=== PATIENT | female | born 1990 | race African-American/Black ===

== ENCOUNTER 2019-02-02 12:39 | Emergency (ER) | payer OTHER ==
[~2019-02-02] VITALS: Ht 157.5 cm; Wt 68.0 kg
[~2019-02-02 12:39] MED LIST: NAPR-683 PO; PNV1CAPS PO
[2019-02-02] MEDS ORDERED: ONDANSETRON PF 4 MG/2 ML VIAL. IV ONE (13:45)
[2019-02-02] MEDS ORDERED: IV NORMAL SALINE 1000ML BAG 1,000 ML IV ONE (13:45)
--- NOTE | 2019-02-02 13:46 | PHYS DOC ---
Past Medical History Past Medical History: Depression Past Surgical History: No Surgical History Alcohol Use: None Drug Use: None Adult General Chief Complaint Chief Complaint: NAUSEA/VOMITING/DIARRHA HPI HPI Patient is a 28 year old [female] who presents with [nausea, vomiting, diarrhea, and RLQ abdominal pain. Patient states she had eaten a bad hamburger at [facility] yesterday, had started to feel nauseous, has had 5 episodes of vomiting, 3 episodes of diarrhea, and loss of appetite today. Denies fever. States LMP 3 days, ago, this discomfort does not feel like her menstrual discomfort. States last bowel movement approximately 2 hours ago. ] Review of Systems Review of Systems Constitutional: Denies fever does report some chills [] Eyes: Denies change in visual acuity, redness, or eye pain [] HENT: Denies nasal congestion or sore throat [] Respiratory: Denies cough or shortness of breath [] Cardiovascular: No additional information not addressed in HPI [] GI: Reports abdominal pain, nausea, vomiting, diarrhea. Denies change in stools, denies bloody stools [] : Denies dysuria or hematuria [] Musculoskeletal: Denies back pain or joint pain [] Integument: Denies rash or skin lesions [] Neurologic: Denies headache, focal weakness or sensory changes [] Endocrine: Denies polyuria or polydipsia [] All other systems were reviewed and found to be within normal limits, except as documented in this note. Current Medications Current Medications Current Medications Medications (Trade) Dose Ordered Sig/Elieser Start Time Stop Time Status Last Admin Dose Admin Info (CONTRAST GIVEN -- Rx MONITORING) 1 each PRN DAILY PRN 02/02/19 14:45 02/04/19 14:44 Iohexol (Omnipaque 300 Mg/ml) 75 ml 1X ONCE 02/02/19 14:30 02/02/19 14:31 DC Ondansetron HCl (Zofran) 4 mg 1X ONCE 02/02/19 13:45 02/02/19 13:47 DC 02/02/19 13:58 4 MG Sodium Chloride 1,000 ml @ 1,000 mls/hr 1X ONCE 02/02/19 13:45 02/02/19 14:44 DC 02/02/19 13:58 1,000 MLS/HR Allergies Allergies Allergies Coded Allergies Type Severity Reaction Last Updated Verified No Known Drug Allergies 02/02/19 No Physical Exam Physical Exam Constitutional: Well developed, well nourished, no acute distress, non-toxic appearance. [] HENT: Normocephalic, atraumatic, bilateral external ears normal, oropharynx moist, no oral exudates, nose normal. [] Eyes: PERRLA, EOMI, conjunctiva normal, no discharge. [] Neck: Normal range of motion, no tenderness, supple, no stridor. [] Cardiovascular:Heart rate regular rhythm, no murmur [] Lungs & Thorax: Bilateral breath sounds clear to auscultation [] Abdomen: Bowel sounds normal, soft, tenderness to RLQ, no masses, no pulsatile masses. Negative Psoas. Negative Rovsigs, Negative Warwick sign[] Skin: Warm, dry, no erythema, no rash. [] Back: No tenderness, no CVA tenderness. [] Extremities: No tenderness, no cyanosis, no clubbing, ROM intact, no edema. [] Neurologic: Alert and oriented X 3, normal motor function, normal sensory function, no focal deficits noted. [] Psychologic: Affect normal, judgement normal, mood normal. [] Current Patient Data Vital Signs Vital Signs Date Time Temp Pulse Resp B/P (MAP) Pulse Ox O2 Delivery O2 Flow Rate FiO2 02/02/19 13:08 98.3 75 16 111/75 (87) 99 98.3 Lab Values Laboratory Tests Test 02/02/19 13:00 02/02/19 13:06 02/02/19 13:50 Urine Collection Type Unknown Urine Color Yellow Urine Clarity Clear Urine pH 7.0 Urine Specific [place] 1.020 Urine Protein Negative mg/dL (NEG-TRACE) Urine Glucose (UA) Negative mg/dL (NEG) Urine Ketones (Stick) Negative mg/dL (NEG) Urine Blood Negative (NEG) Urine Nitrite Negative (NEG) Urine Bilirubin Negative (NEG) Urine Urobilinogen Dipstick 1.0 mg/dL (0.2 mg/dL) Urine Leukocyte Esterase Small (NEG) Urine RBC 1-2 /HPF (0-2) Urine WBC 1-4 /HPF (0-4) Urine Squamous Epithelial Cells Mod /LPF Urine Bacteria Moderate /HPF (0-FEW) Urine Mucus Mod /LPF POC Urine HCG, Qualitative Hcg negative (Negative) White Blood Count 4.8 x10^3/uL (4.0-11.0) Red Blood Count 4.32 x10^6/uL (3.50-5.40) Hemoglobin 12.2 g/dL (12.0-15.5) Hematocrit 37.1 % (36.0-47.0) Mean Corpuscular Volume 86 fL (79-100) Mean Corpuscular Hemoglobin 28 pg (25-35) Mean Corpuscular Hemoglobin Concent 33 g/dL (31-37) Red Cell Distribution Width 14.6 % (11.5-14.5) H Platelet Count 249 x10^3/uL (140-400) Neutrophils (%) (Auto) 44 % (31-73) Lymphocytes (%) (Auto) 46 % (24-48) Monocytes (%) (Auto) 8 % (0-9) Eosinophils (%) (Auto) 2 % (0-3) Basophils (%) (Auto) 1 % (0-3) Neutrophils # (Auto) 2.1 x10^3/uL (1.8-7.7) Lymphocytes # (Auto) 2.2 x10^3/uL (1.0-4.8) Monocytes # (Auto) 0.4 x10^3/uL (0.0-1.1) Eosinophils # (Auto) 0.1 x10^3/uL (0.0-0.7) Basophils # (Auto) 0.0 x10^3/uL (0.0-0.2) Sodium Level 140 mmol/L (136-145) Potassium Level 4.7 mmol/L (3.5-5.1) Chloride Level 104 mmol/L (98-107) Carbon Dioxide Level 28 mmol/L (21-32) Anion Gap 8 (6-14) Blood Urea Nitrogen 12 mg/dL (7-20) Creatinine 0.9 mg/dL (0.6-1.0) Estimated GFR (Cockcroft-Gault) 91.6 BUN/Creatinine Ratio 13 (6-20) Glucose Level 92 mg/dL (70-99) Calcium Level 9.3 mg/dL (8.5-10.1) Total Bilirubin 0.4 mg/dL (0.2-1.0) Aspartate Amino Transferase (AST) 34 U/L (15-37) Alanine Aminotransferase (ALT) 34 U/L (14-59) Alkaline Phosphatase 97 U/L (46-116) Total Protein 7.9 g/dL (6.4-8.2) Albumin 3.6 g/dL (3.4-5.0) Albumin/Globulin Ratio 0.8 (1.0-1.7) L Laboratory Tests 02/02/19 13:50 Laboratory Tests 02/02/19 13:50 EKG EKG [] Radiology/Procedures Radiology/Procedures FINDINGS: Lung bases are clear. Liver unremarkable. Spleen unremarkable. Pancreas is difficult to delineate from adjacent unopacified bowel loops but no definite abnormality. No evidence of adrenal mass. Kidneys demonstrate symmetric enhancement without hydronephrosis or dominant mass. No calcified gallstone. Aorta is nonaneurysmal. No significant lymph node enlargement is seen. No significant small bowel distention. No evidence of acute colitis. The appendix is not clearly visualized, which could be due to the noncontrast technique and the paucity of fat in the right lower quadrant. No definite inflammatory type changes or fluid is identified in the expected location of the appendix. Urinary bladder appears unremarkable. No evidence of pelvic mass. Vertebral body height and alignment are intact. IMPRESSION: The appendix is not visualized. This could be due to the lack of oral contrast and paucity of fat. No definite inflammatory type changes or fluid are identified. Electronically signed by: Lucius Corado MD (02/02/2019 2:58 PM) [facility] [] Course & Med Decision Making Course & Med Decision Making Pertinent Labs and Imaging studies reviewed. (See chart for details) [Discussed recommendation for imaging and labs with patient, patient states she has to take care of her children and take fiancee to work. states she is not sure she wants to wait for results. Discussed with patient recommendation to stay or if she refuses, she can return or follow up with PCP. Agrees to stay for testing Discussed lab and imaging results patient, patient reports she feels a lot better at this time. Patient states she does not have any urinary concerns, rep orts she does not have any urinary frequency, denies any urinary concerns. Advised that she does have further urinary symptoms she should follow-up with her primary care provider.] Dragon Disclaimer Dragon Disclaimer This electronic medical record was generated, in whole or in part, using a voice recognition dictation system. Departure Departure Impression: Primary Impression: Gastroenteritis Disposition: 01 HOME, SELF-CARE Condition: GOOD Referrals: VICTORINA BO MD (PCP) Patient Instructions: Viral Gastroenteritis, [id number] Additional Instructions: As we discussed, make sure you're drinking plenty of fluids. Take the nausea medicine as needed. Follow-up with her primary care provider. If he notices any urinary concerns, he may want follow-up with her primary care provider to consider another urinalysis to determine if they have any further bacteria in urine. Scripts Ondansetron (ONDANSETRON ODT) 4 Mg Tab.rapdis 4 MG PO BID PRN for NAUSEA/VOMITING, #10 TAB Prov: JODIE RAYMOND APRN 02/02/19 JODIE RAYMOND APRN Feb 02, 2019 13:46
[2019-02-02 13:52] LABS: BILIRUBIN,URINE NEGATIVE (NEG); CLARITY,URINE CLEAR; COLOR,URINE YELLOW; NITRITE,URINE NEGATIVE (NEG); PROTEIN,URINE NEGATIVE (NEG-TRACE)
[2019-02-02 14:04] LABS: BASO % 1 % (0-3); EOS # 0.1 x10^3/uL (0.0-0.7); EOS % 2 % (0-3); HEMATOCRIT 37.1 % (36.0-47.0); HEMOGLOBIN 12.2 g/dL (12.0-15.5); LYMPH # 2.2 x10^3/uL (1.0-4.8); LYMPH % 46 % (24-48); MEAN CORPUSCULAR HEMOGLOBIN 28 pg (25-35); MEAN CORPUSCULAR HGB CONC 33 g/dL (31-37); MEAN CORPUSCULAR VOLUME 86 fL (79-100); MONO # 0.4 x10^3/uL (0.0-1.1); MONO % 8 % (0-9); NEUT # 2.1 x10^3/uL (1.8-7.7); NEUT % 44 % (31-73); PLATELET COUNT 249 x10^3/uL (140-400); RED BLOOD COUNT 4.32 x10^6/uL (3.50-5.40); RED CELL DISTRIBUTION WIDTH 14.6 % (11.5-14.5); WHITE BLOOD COUNT 4.8 x10^3/uL (4.0-11.0)
[2019-02-02 14:05] LABS: BACTERIA,URINE MODERATE /HPF (0-FEW); SQUAMOUS EPITHELIAL CELL,UR MOD /LPF
[2019-02-02 14:12] LABS: CALCIUM 9.3 mg/dL (8.5-10.1); CREATININE 0.9 mg/dL (0.6-1.0); GFR 91.6; POTASSIUM 4.7 mmol/L (3.5-5.1)
[2019-02-02 14:18] LABS: ALBUMIN 3.6 g/dL (3.4-5.0); ALBUMIN/GLOBULIN RATIO 0.8 (1.0-1.7); TOTAL BILIRUBIN 0.4 mg/dL (0.2-1.0); TOTAL PROTEIN 7.9 g/dL (6.4-8.2)
[2019-02-02] MEDS ORDERED: IOHEXOL 300 MG/ML 100ML VIAL. IV ONE (14:30)
[2019-02-02] MEDS ORDERED: CONTRAST GIVEN. MC PRN (14:45)
--- NOTE | 2019-02-02 15:01 | RAD ---
CT ABD PELV W/ IV CONTRST ONLY Indication: Right lower quadrant pain Exposure: One or more of the following individualized dose reduction techniques were utilized for this examination: 1. Automated exposure control 2. Adjustment of the mA and/or kV according to patient size 3. Use of iterative reconstruction technique. Technique: Intravenous contrast was given. No oral contrast per request. Comparison: None FINDINGS: Lung bases are clear. Liver unremarkable. Spleen unremarkable. Pancreas is difficult to delineate from adjacent unopacified bowel loops but no definite abnormality. No evidence of adrenal mass. Kidneys demonstrate symmetric enhancement without hydronephrosis or dominant mass. No calcified gallstone. Aorta is nonaneurysmal. No significant lymph node enlargement is seen. No significant small bowel distention. No evidence of acute colitis. The appendix is not clearly visualized, which could be due to the noncontrast technique and the paucity of fat in the right lower quadrant. No definite inflammatory type changes or fluid is identified in the expected location of the appendix. Urinary bladder appears unremarkable. No evidence of pelvic mass. Vertebral body height and alignment are intact. IMPRESSION: The appendix is not visualized. This could be due to the lack of oral contrast and paucity of fat. No definite inflammatory type changes or fluid are identified. Electronically signed by: Lucius Corado MD (02/02/2019 2:58 PM) [facility]
[2019-02-02] MEDS ORDERED: ONDA4TAB12 PO (15:38)
[2019-02-02 15:45] VITALS: BP 111/69
== END 2019-02-02 15:52 | disposition home or self-care (01) ==
LOC: ER 12:39
DX: K52.9 Noninfective gastroenteritis and colitis, unspecified (principal)
CPT/HCPCS: 36415; 74177; 80053; 81001; 81025; 85025; 87086; 96361; 96374; 99285; J2405; J7030